=== PATIENT | female | born 1980 | race Caucasian/White ===

== ENCOUNTER 2016-10-16 05:17 | Day surgery (SDC) | payer BC ==
[2016-10-13 13:51] VITALS: BMI 33.3
--- NOTE | 2016-10-16 15:08 | HP ---
Past Medical History - Primary Care Physician PCP:: Mu Turner - Admission Chief Complaint: 36yo female with missed Ab at EGA 17w1d and US measurements 13wks 6days admitted for D&E. History of Present Illness: Pelvic US confirmed IUFD at 13wks History Source: Patient, Medical Record Limitations to Obtaining History: No Limitations - Past Medical History ENROBER: No: Alzheimer's, CVA, Dementia, Migraine, Multiple Sclerosis, Peripheral Neuropathy, Parkinson's, Seizure, Syncope, TIA, Vertigo, Other Cardiovascular: No: AFIB, Aneurysm, Aortic Insufficiency, Aortic Stenosis, CAD, CHF, Deep Vein Thrombosis, HTN, Hyperlipdemia, [place], Mitral Insufficiency, Mitral Stenosis, Murmur, Pulmonary Hypertension, Other Pulmonary: No: Asthma, Bronchitis, Cancer, COPD, O2 Dependent, Pneumonia, Previously Intubated, Pulmonary Embolus, Pulmonary Fibrosis, Sleep Apnea, Other Gastrointestinal: No: Ascites, Cancer, Constipation, Crohn's Disease, Diverticulitis, Diverticulosis, Esophageal Varices, Gastritis, GERD, GI Bleed, Hemorrhoids, Hiatal Hernia, Inflamatory Bowel Disease, Irritable Bowel Disease, Pancreatitis, Peptic Ulcer Disease, Ulcerative Colitis, Other Hepatobiliary: No: Cirrhosis, Cholelithiasis, Cholecystitis, Choledocholithiasis , Hepatitis A, Hepatitis B, Hepatitis C, Other Renal/: No: Renal Failure, Renal Inusuff, BPH, Cancer, Hematuria, Hemodialysis , Neurogenic Bladder, Renal Calculi, UTI, Other Reproductive: No: Ectopic , Endometriosis, Fibroids, PID, Polycystic Ovary Syndrome, Postmenopausal, Other ...Para: 3 Heme/Onc: No: Anemia, B12 Deficiency, Bleeding Disorder, Cancer, Current Chemotherapy, Current Radiation Therapy, Hemochromatosis, Hypercoaguable State, Myeloproliferative Synd, Sickle Cell Disease, Sickle Cell Trait, Thrombocytopenia, Other Infectious Disease: No: AIDS, C-Diff, Herpes Zoster, HIV, MRSA, STD's, Tuberculosis, VREF, Other Psych: No: Addictions, Anxiety, Bipolar, Depression, Panic, Psychosis, Schizophrenia, Other Musculoskeletal: No: Bursitis, Chronic low back pain, Hemiparesis, Hemiplegia, Osteoarthritis, Paraplegia, Other Rheumatology: No: Fibromyalgia, Gout, Lupus, Rheumatoid Arthritis, Sarcoidosis, Vasculitis, Other ENT: No: Allergic Rhinitis, Sinusitis, Other Endocrine: No: [place]'s Disease, [place]'s Disease, Diabetes Insipidus, Diabetes Mellitus, Hyperparathyroidism, Hyperthyroidism, Hypothyroidism, Osteopenia, SIADH, Other Dermatology: No: Basal Cell, Cellulitis, Eczema, Melanoma, Psoriasis, Squamous Cell, Other - Past Surgical History Past Surgical History: Yes: Appendectomy, Tonsillectomy Hx Myomectomy: No Hx Transabdominal Cerclage: No - Smoking History Smoking history: Never smoked Have you smoked in the past 12 months: No - Alcohol/Substance Use Hx Alcohol Use: No History of Substance Use: reports: None - Social History Usual Living Arrangement: Yes: With Spouse, With Child ADL: Independent History of Recent Travel: No Home Medications - Allergies Allergies/Adverse Reactions: Allergies Allergy/AdvReac Type Severity Reaction Status Date / Time No Known Drug Allergies Allergy Verified 10/13/16 13:51 - Home Medications Home Medications: Ambulatory Orders [facility] #116/Iron Fumarate/FA/Dha [Expecta Combo Pack] 1 each PO DAILY Family Disease History - Family Disease History Family History: Unremarkable Review of Systems - Review of Systems Constitutional: reports: No Symptoms Eyes: reports: No Symptoms HENT: reports: No Symptoms Neck: reports: No Symptoms Cardiovascular: reports: No Symptoms Respiratory: reports: No Symptoms Gastrointestinal: reports: No Symptoms Genitourinary: reports: No Symptoms Breasts: reports: No Symptoms Reported Musculoskeletal: reports: No Symptoms Integumentary: reports: No Symptoms Neurological: reports: No Symptoms Endocrine: reports: No Symptoms Hematology/Lymphatic: reports: No Symptoms Psychiatric: reports: No Symptoms Pain Intensity: 0 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 Vital Signs: Vital Signs Temperature 98.5 F 10/16/16 10:40 Pulse Rate 77 10/16/16 10:40 Respiratory Rate 20 10/16/16 10:40 Blood Pressure 114/72 10/16/16 10:40 O2 Sat by Pulse Oximetry (%) 100 10/16/16 10:40 Constitutional: Yes: Well Nourished, No Distress, Calm Eyes: Yes: WNL, Conjunctiva Clear HENT: Yes: WNL, Atraumatic, Normocephalic Neck: Yes: WNL, Supple, Trachea Midline Cardiovascular: Yes: WNL, Regular Rate and Rhythm Respiratory: Yes: WNL, Regular, CTA Bilaterally Gastrointestinal: Yes: WNL, Normal Bowel Sounds, Soft ...Rectal Exam: Yes: WNL Renal/: Yes: WNL Pelvis: Yes: WNL External Genitalia: Yes: Normal Internal Exam Deferred: No Vaginal Exam: Yes: Normal Cervix: Yes: Normal Uterus: Yes: Enlarged Adnexa: Normal: Left, Right Musculoskeletal: Yes: WNL Extremities: Yes: WNL Edema: No Integumentary: Yes: WNL Neurological: Yes: WNL, Alert, Oriented ...Motor Strength: WNL Psychiatric: Yes: WNL, Alert, Oriented Imaging - Results Ultrasound: Report Reviewed Assessment/Plan 36yo P3 female with IUFD/missed Ab at 13w6d (US) admitted for D&E. We had a long discussion about the risks, benefits, and alternatives of surgery. I explained the risks of infection, bleeding, scarring, amenorrhea, Asherman's syndrome, infertility, perforation, need for additional surgery to treat any complications, etc. The pt declined expectant management of missed ab or prostaglandin indx. She requested to proceed with surgery.
[2016-10-16] MEDS ORDERED: MIDAZOLAM HCL 2 MG/2 ML SINGLE DOSE VIAL ONE (15:12)
[2016-10-16] MEDS ORDERED: ceFAZolin SODIUM 1 GM VIAL IVPB ONE (15:24)
[2016-10-16] MEDS ORDERED: ACETAMINOPHEN INJECTION 100 ML IVPB ONE (15:53)
[2016-10-16] MEDS ORDERED: PROMETHAZINE HCL 25 MG/1 ML VIAL IVPUSH PRN (15:57)
[2016-10-16] MEDS ORDERED: oxyCODONE HCL 5 MG TABLET PO PRN (15:57)
[2016-10-16] MEDS ORDERED: ONDANSETRON 4 MG/2 ML VIAL IVPUSH PRN (15:57)
[2016-10-16] MEDS ORDERED: ACETAMINOPHEN 1000 MG/100 ML VIAL (NON FORMULARY) IVPB ONE ×2 (15:57→16:05)
[2016-10-16] MEDS ORDERED: LACTATED RINGERS SOLUTION 1,000 ML IV SCH (16:00)
--- NOTE | 2016-10-16 16:33 | OP ---
Operative Note - Note: Operative Date: 10/16/16 Pre-Operative Diagnosis: Missed Ab at EGA 17w1d Operation: D&E Findings: demise with US biometry measurements c/w 13w6d gestation. Post-Operative Diagnosis: Same as Pre-op Surgeon: Mu Turner Anesthesiologist/SUPERVISOR FISH BAIT PROCESSING: Fidencio Dos Santos Anesthesia: General Specimens Removed: POC Estimated Blood Loss (mls): 100 Blood Volume Replaced (mls): 0 Fluid Volume Replaced (mls): 600 Operative Report Dictated: Yes
[2016-10-16 17:24] VITALS: TEMP 98.8
[2016-10-16 18:00] VITALS: BP 118/70; PULSE 60
--- NOTE | 2016-10-17 07:26 | OP ---
DATE OF OPERATION: 10/16/2016 PREOPERATIVE DIAGNOSIS: Missed at estimated gestational age of 17 weeks 1 day. POSTOPERATIVE DIAGNOSIS: Missed at estimated gestational age of 17 weeks 1 day. OPERATION: Surgical completion of missed of 14 weeks. SURGEON: Mu Turner MD ANESTHESIOLOGIST: Fidencio Dos Santos MD ANESTHESIA: General. COMPLICATIONS: None. PATHOLOGY: Products of conception. ESTIMATED BLOOD LOSS: 100 mL. IV FLUIDS: 600 mL. FINDINGS: Examination under anesthesia showed an enlarged, anteverted uterus consistent with no adnexal masses. Intraoperative ultrasound guidance was used throughout the entire procedure to assure complete evacuation of the uterus and decreased risk of complications. No retained products of conception were noted at the end of the procedure. PROCEDURE: Risks, benefits, and alternatives of surgery were discussed in detail. All questions were answered. The patient was then brought to the OR with the IV running. She was placed on the surgical table in the supine position. General anesthesia was achieved without difficulty. The patient was then placed in a dorsal lithotomy position using adjustable Fitz stirrups. The patient was examined under anesthesia with the findings as described above. She was prepped and draped in the usual sterile fashion. A time-out procedure was conducted per standard protocol. A sterile speculum was then introduced inside the vagina with good visualization of the cervix. The anterior cervical lip was grasped with a single-tooth tenaculum. The cervical os was dilated to accommodate size 37 Fajardo dilator. A 12-mm suction curette was then used to evacuate products of conception. A ring forceps was also used to remove the parts. The entire procedure from beginning to end was done under real time ultrasound guidance. No retained products of conception were noted at the end of the procedure. Good hemostasis was noted once the procedure was completed. The patient tolerated the procedure well. Sponge, lap, and needle counts were correct. The patient was transferred to recovery room in stable condition and awake. Fercho [id number]
--- NOTE | 2016-10-21 14:37 | PATH ---
Surgical Pathology Report Patient Name: HARRISON HUNT Med. Rec. #: [id number] /Age/Gender: 1980 (Age: 36) / F Account: [id number] Location: [facility] Taken: 10/16/2016 Received: 10/20/2016 Reported: 10/21/2016 Physicians: Mu Turner M.D. Specimen(s) Received CONTENTS OF UTERUS Clinical History Missed Final Diagnosis PRODUCTS OF CONCEPTION: SOMATIC TISSUE PRESENT. CHORIONIC VILLUS TISSUE PRESENT. Electronically Signed Joni Warner M.D. Gross Description Received in formalin labeled "products of conception" is a 15.0 x 10.5 x 1.8 cm aggregate of noble red soft tissue fragments. Villous tissue and somatic tissue is identified. The foot measures 1.3 cm from heel to toe. Commission Broker sections are submitted in 2 cassettes as follows: 1-villous tissue; 2- somatic tissue. 10/20/2016 saudi10/20/2016
== END 2016-10-16 18:01 | disposition home or self-care (01) ==
LOC: JASU-SURG 05:17
PROVIDERS: ATTEND Obstetrics & Gynecology
PROC: 10D17ZZ Extraction of Products of Conception, Retained, Via Natural or Artificial Opening (ICD-10-PCS; principal; 2016-10-16 12:00)
DX: O02.1 Missed abortion (principal); Z3A.14 14 weeks gestation of pregnancy
CPT/HCPCS: 76998-TC; 88305-TC; 94760